=== PATIENT | male | born 1990 | race Caucasian/White ===

== ENCOUNTER 2024-02-16 11:41 | Emergency (ER) | payer OTHER, BC, SELFPAY ==
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
[2024-02-16 11:49] VITALS: BP 126/78; BP 134/80; PULSE 126; PULSE 128; RESP 22; TEMP 37.4; O2SAT 100; O2SAT 97; BMI 25.8
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
[2024-02-16 12:41] VITALS: BP 123/59; PULSE 121; RESP 16; O2SAT 96
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
[2024-02-16 13:30] LABS: Influenza A PCR NEGATIVE (Negative); Influenza B PCR NEGATIVE (Negative); Resp Syncy Virus RNA Qual PCR NEGATIVE (Negative); SARS COV2 PCR INHOUSE POSITIVE (Negative)
[2024-02-16] MEDS: Acetaminophen 325 MG TABLET 975 MG PO (14:40)
[2024-02-16 14:44] VITALS: BP 115/56; PULSE 117; RESP 22; TEMP 37.1; O2SAT 98
[2024-02-16 14:49] VITALS: BP 140/63; PULSE 104; RESP 21; TEMP 36.7; O2SAT 92
[2024-02-16 15:01] VITALS: BP 115/56; PULSE 104; RESP 18; TEMP 36.7; O2SAT 98
--- NOTE | 2024-02-16 15:13 | PC.NURSE ---
PT CLEARED FOR DISCHARGE. DISCHARGE INSTRUCTIONS REVIEWED W PT AND FATHER AT BEDSIDE. PT A+O X3, REPORTED 3/10 LOWER BACK PAIN, TYLENOL GIVEN ORDERED AND DOCUMENTED, AMBULATED TO WAITING ROOM, GAIT STEADY.
== END 2024-02-16 15:05 | disposition home or self-care (01) ==
PROVIDERS: Physician Assistant Medical; Emergency Provider Emergency Medicine
DX: U07.1 COVID-19 (principal); S00.31XA Abrasion of nose, initial encounter; S00.81XA Abrasion of other part of head, initial encounter; V47.5XXA Car driver injured in collision with fixed or stationary object in traffic accident, initial encounter; Y93.89 Activity, other specified; Y92.414 Local residential or business street as the place of occurrence of the external cause; Y99.9 Unspecified external cause status
CPT/HCPCS: 0241U; 70450; 72125; 99284